=== PATIENT | female | born 1950 | race Caucasian/White ===

== ENCOUNTER 2021-11-25 19:20 | Emergency (ER) | payer MEDICARE, OTHER ==
[2021-11-25] MEDS ORDERED: diphenhydrAMINE 50 MG/ML SDV IVPUSH ONE (20:04)
[2021-11-25] MEDS ORDERED: Lactated Ringers 1,000 ML IV ONE (20:04)
[2021-11-25] MEDS ORDERED: Metoclopramide 10 MG/2 ML SDV IVPUSH ONE (20:04)
--- NOTE | 2021-11-25 20:26 | EDM.PDOC ---
ED [facility] GENERAL MEDICAL PROBLEM - General Chief Complaint: Neurological Problem Stated Complaint: DIZZY SPELLS/VOMITING Time Seen by Provider: 11/25/21 20:23 Source of Information: Reports: Patient History Limitations: Reports: No Limitations - History of Present Illness INITIAL COMMENTS - FREE TEXT/NARRATIVE: Patient is a 71-year-old female with prior stroke presenting with a chief complaint of dizziness and vomiting. Patient states the dizziness started while watching TV approximately 3 hours ago. Subsequently, it has waxed and waned. She is currently asymptomatic. She states the dizziness felt like a room spinning sensation and she felt sick to her stomach. She did vomit several times. Vomiting seemed to improve symptoms. She reports feeling generally weak now. However, there is no focality to her weakness. She denies any headache, blurry vision, abdominal pain. She also had several episodes of diarrhea this morning. Denies any prior history of vertigo or similar symptoms. No interventions performed prior to arrival. 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: Musculoskeletal History: Reports: Other (See Below) Other Musculoskeletal History: restless leg syndrome Neurological History: Reports: Other (See Below) Other Neuro History: CVA Aug 2020 Psychiatric History: Reports: Eating Disorders, Other (See Below) Other Psychiatric History: bulemia history - Infectious Disease History Infectious Disease History: Reports: Shingles - Past Surgical History GI Surgical History: Reports: None Social & Family History - Tobacco Use Tobacco Use Status *Q: Never Tobacco User - Caffeine Use Caffeine Use: Reports: Coffee - Recreational Drug Use Recreational Drug Use: No ED ROS GENERAL - Review of Systems Review Of Systems: See Below Free Text/Narrative/Comment: In addition to that documented in the HPI above, the additional ROS was obtained: Constitutional: Denies fevers or chills Eyes: Denies vision changes ENMT: Denies sore throat CV: Denies chest pain Resp: Denies SOB GI: Per HPI : Denies painful urination MSK: Denies recent trauma Skin: Denies new rashes Neuro: Denies new numbness or tingling or weakness Endocrine: Denies unexpected weight loss Heme: Denies bleeding disorders ED EXAM, DIZZINESS - Physical Exam Exam: See Below Text/Narrative:: I have reviewed the triage vital signs Const: Well nourished, well developed, appears stated age Eyes: Pupils Equal and reactive to light bilaterally, no conjunctival injection HENT: No signs of trauma or swelling, Neck supple without meningismus CV: Regular Rate Rhythm, Warm, well-perfused extremities RESP: Unlabored respiratory effort GI: soft, non-tender, non-distended, no masses MSK: No gross deformities appreciated Skin: Warm, dry. 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 No pronator drift. Lweake-vsdi-[id number] normal. Sensation and motor function of extremities is intact. Psych: Appropriate mood and affect. #1 Interpretation EKG Date: 11/25/21 Time: 20:30 Rhythm: NSR Rate (Beats/Min): 72 [place]: Normal P-Wave: Present QRS: Normal ST-T: Normal QT: Normal EKG Interpretation Comments: Normal EKG Course - Vital Signs Last Recorded V/S: Last Vital Signs Temp 35.9 C L 11/25/21 19:33 Pulse 66 11/25/21 19:33 Resp 15 11/25/21 19:33 BP 152/85 H 11/25/21 19:33 Pulse Ox 96 11/25/21 19:41 - Orders/Labs/Meds Orders: Active Orders 24 hr Category Date Time Status Blood Glucose Check, Bedside [RC] ONETIME Care 11/25/21 20:03 Active Ang Head [CT] Stat Exams 11/25/21 21:11 Taken Ang Neck [CT] Stat Exams 11/25/21 21:12 Taken Head wo Cont [CT] Stat Exams 11/25/21 20:03 Taken Simvastatin [Zocor] Med 11/26/21 22:26 Once 40 mg PO ONETIME ONE Sodium Chloride 0.9% [Normal Saline] 100 ml Med 11/25/21 22:00 Active IV ASDIRECTED Medication Orders Sodium Chloride (Normal Saline) 100 mls @ 60 mls/min IV ASDIRECTED KYLER Last Admin: 11/25/21 21:55 Dose: 60 mls/min Documented by: JUSTIN Simvastatin (Simvastatin 40 Mg Tab) 40 mg PO ONETIME ONE Stop: 11/26/21 22:27 Labs: Laboratory Tests 11/25/21 11/25/21 11/25/21 Range/Units 20:53 20:53 20:53 WBC 10.74 H (3.98-10.04) K/mm3 RBC 4.72 (3.98-5.22) M/mm3 Hgb 14.3 (11.2-15.7) gm/dl Hct 45.0 H (34.1-44.9) % MCV 95.3 H (79.4-94.8) fl MCH 30.3 (25.6-32.2) pg MCHC 31.8 L (32.2-35.5) g/dl RDW Std Deviation 43.3 (36.4-46.3) fL Plt Count 337 (182-369) K/mm3 MPV 9.7 (9.4-12.3) fl Neut % (Auto) 76.4 H (34.0-71.1) % Lymph % (Auto) 13.3 L (19.3-51.7) % [place] % (Auto) 7.4 (4.7-12.5) % Eos % (Auto) 2.2 (0.7-5.8) Baso % (Auto) 0.5 (0.1-1.2) % Neut # (Auto) 8.21 H (1.56-6.13) K/mm3 Lymph # (Auto) 1.43 (1.18-3.74) K/mm3 [place] # (Auto) 0.79 H (0.24-0.36) K/mm3 Eos # (Auto) 0.24 (0.04-0.36) K/mm3 Baso # (Auto) 0.05 (0.01-0.08) K/mm3 PT 10.5 (9.7-12.0) SECONDS INR 0.94 Sodium 143 (136-145) mEq/L Potassium 4.4 (3.5-5.1) mEq/L Chloride 105 (98-107) mEq/L Carbon Dioxide 32 (21-32) mEq/L Anion Gap 10.4 (5-15) BUN 20 H (7-18) mg/dL Creatinine 1.0 (0.55-1.02) mg/dL Est Cr Clr Drug Dosing 38.37 mL/min Estimated GFR (MDRD) 55 (>60) mL/min BUN/Creatinine Ratio 20.0 H (14-18) Glucose 111 H (70-99) mg/dL POC Glucose (70-99) mg/dL Calcium 9.2 (8.5-10.1) mg/dL Total Bilirubin 0.4 (0.2-1.0) mg/dL AST 22 (15-37) U/L ALT 21 (14-59) U/L Alkaline Phosphatase 90 (46-116) U/L Total Protein 8.1 (6.4-8.2) g/dl Albumin 3.8 (3.4-5.0) g/dl Globulin 4.3 gm/dL Albumin/Globulin Ratio 0.9 L (1-2) Ethyl Alcohol 0.00 (0.00) gm% SARS-CoV-2 RNA (CHALINO) (NEGATIVE) 11/25/21 11/25/21 Range/Units 20:55 21:44 WBC (3.98-10.04) K/mm3 RBC (3.98-5.22) M/mm3 Hgb (11.2-15.7) gm/dl Hct (34.1-44.9) % MCV (79.4-94.8) fl MCH (25.6-32.2) pg MCHC (32.2-35.5) g/dl RDW Std Deviation (36.4-46.3) fL Plt Count (182-369) K/mm3 MPV (9.4-12.3) fl Neut % (Auto) (34.0-71.1) % Lymph % (Auto) (19.3-51.7) % [place] % (Auto) (4.7-12.5) % Eos % (Auto) (0.7-5.8) Baso % (Auto) (0.1-1.2) % Neut # (Auto) (1.56-6.13) K/mm3 Lymph # (Auto) (1.18-3.74) K/mm3 [place] # (Auto) (0.24-0.36) K/mm3 Eos # (Auto) (0.04-0.36) K/mm3 Baso # (Auto) (0.01-0.08) K/mm3 PT (9.7-12.0) SECONDS INR Sodium (136-145) mEq/L Potassium (3.5-5.1) mEq/L Chloride (98-107) mEq/L Carbon Dioxide (21-32) mEq/L Anion Gap (5-15) BUN (7-18) mg/dL Creatinine (0.55-1.02) mg/dL Est Cr Clr Drug Dosing mL/min Estimated GFR (MDRD) (>60) mL/min BUN/Creatinine Ratio (14-18) Glucose (70-99) mg/dL POC Glucose 96 (70-99) mg/dL Calcium (8.5-10.1) mg/dL Total Bilirubin (0.2-1.0) mg/dL AST (15-37) U/L ALT (14-59) U/L Alkaline Phosphatase (46-116) U/L Total Protein (6.4-8.2) g/dl Albumin (3.4-5.0) g/dl Globulin gm/dL Albumin/Globulin Ratio (1-2) Ethyl Alcohol (0.00) gm% SARS-CoV-2 RNA (CHALINO) Negative (NEGATIVE) Meds: Medications Generic Name Dose Route Start Last Admin Trade Name Freq PRN Reason Stop Dose Admin Sodium Chloride 100 mls @ 60 mls/min 11/25/21 22:00 11/25/21 21:55 Normal Saline IV 60 mls/min ASDIRECTED KYLER Administration Simvastatin 40 mg 11/26/21 22:26 Simvastatin 40 Mg Tab PO 11/26/21 22:27 ONETIME ONE Discontinued Medications Generic Name Dose Route Start Last Admin Trade Name Freq PRN Reason Stop Dose Admin Aspirin 325 mg 11/25/21 22:26 11/25/21 22:41 Aspirin 325 Mg Tab.Ec PO 11/25/21 22:27 325 mg ONETIME ONE Administration Diphenhydramine HCl 25 mg 11/25/21 20:04 11/25/21 20:51 Diphenhydramine 50 Mg/Ml Sdv IVPUSH 11/25/21 20:05 25 mg ONETIME ONE Administration Lactated Ringer's 1,000 mls @ 1,000 mls/hr 11/25/21 20:04 11/25/21 20:49 Ringers, Lactated IV 11/25/21 21:03 1,000 mls/hr .BOLUS ONE Administration Iopamidol 100 ml 11/25/21 21:54 11/25/21 21:54 Iopamidol 755 Mg/Ml 100 Ml Bottle IVPUSH 11/25/21 21:55 100 ml ONETIME ONE Administration Metoclopramide HCl 10 mg 11/25/21 20:04 11/25/21 20:49 Metoclopramide 10 Mg/2 Ml Sdv IVPUSH 11/25/21 20:05 10 mg ONETIME ONE Administration Prednisone 40 mg 11/25/21 23:20 Prednisone 10 Mg Tab PO 11/25/21 23:21 STAT STA Simvastatin 40 mg 11/25/21 22:50 Simvastatin 40 Mg Tab PO 11/25/21 22:51 STAT STA Sodium Chloride 10 ml 11/25/21 21:54 11/25/21 21:55 Sodium Chloride 0.9% 10 Ml Sdv FLUSH 11/25/21 21:55 10 ml ONETIME ONE Administration Departure - Departure Time of Disposition: 23:21 Disposition: Home, Self-Care 01 Clinical Impression: TIA (transient ischemic attack), Dizziness - Discharge Information Prescriptions: Clopidogrel Bisulfate [Plavix] 75 mg PO DAILY #10 tablet predniSONE See Taper PO WITHBREAKFAST #15 tab Instructions: Transient Ischemic Attack, [id number], Dizziness, [id number] Referrals: PCP,Not In Area [Primary Care Provider] - Forms: ED Department Discharge Sepsis Event Note (ED) - Evaluation Sepsis Screening Result: No Definite Risk - Focused Exam Vital Signs: Vital Signs Temp Pulse Resp BP Pulse Ox 11/25/21 19:41 96 11/25/21 19:33 35.9 C L 66 15 152/85 H - My Orders Last 24 Hours: My Active Orders 11/25/21 20:03 Blood Glucose Check, Bedside [RC] ONETIME Head wo Cont [CT] Stat 11/25/21 21:11 Ang Head [CT] Stat 11/25/21 21:12 Ang Neck [CT] Stat 11/25/21 22:00 Sodium Chloride 0.9% [Normal Saline] 100 ml IV ASDIRECTED 11/26/21 22:26 Simvastatin [Zocor] 40 mg PO ONETIME ONE - Assessment/Plan Last 24 Hours: My Active Orders 11/25/21 20:03 Blood Glucose Check, Bedside [RC] ONETIME Head wo Cont [CT] Stat 11/25/21 21:11 Ang Head [CT] Stat 11/25/21 21:12 Ang Neck [CT] Stat 11/25/21 22:00 Sodium Chloride 0.9% [Normal Saline] 100 ml IV ASDIRECTED 11/26/21 22:26 Simvastatin [Zocor] 40 mg PO ONETIME ONE Assessment:: Patient 71-year-old female presenting to the emergency room with dizziness. Benign neurologic exam. NIH stroke scale 0. Remained asymptomatic while in the emergency room. Broad differential diagnosis considered for this patient include cardiac arrhythmia, acute stroke/TIA, electrolyte aberrancy, severe anemia. Laboratory studies and CAT scan reviewed. No significant abnormalities on laboratory study. There is evidence of possible acute lacunar infarct due to a hypodensity within the left jennifer. There is no evidence of large vessel o cclusion on CT angiogram. At this point, patient was given aspirin and atorvastatin. I did discuss this case with Dr. Dalton of [facility] who recommended rapid access outpatient follow-up in their clinic. He did not recommend admission. He did recommend prednisone taper as well as addition of Plavix for several weeks. These were prescribed for the patient. All questions were addressed and answered. Patient discharged with outpatient follow-up.
[2021-11-25] MEDS ORDERED: Iopamidol 755 Mg/ML 100 ML Bottle IVPUSH ONE (21:54)
[2021-11-25] MEDS ORDERED: Sodium Chloride 0.9% 10 ML SDV FLUSH ONE (21:54)
[2021-11-25] MEDS ORDERED: Sodium Chloride 0.9% 100 ML IV SCH (22:00)
[2021-11-25] MEDS ORDERED: Aspirin 325 MG Tab.EC PO ONE (22:26)
[2021-11-25] MEDS ORDERED: Simvastatin 40 MG Tab PO STA (22:50)
[2021-11-25] MEDS ORDERED: predniSONE 10 MG Tab PO STA (23:20)
--- NOTE | 2021-11-26 08:06 | CT ---
Head CT Technique: Multiple axial sections through the brain were obtained. Intravenous contrast not utilized. Reconstructed coronal and sagittal images were obtained. Comparison: No prior intracranial imaging is available. Findings: Ventricles along with basal cisterns and sulci over the convexities are mildly prominent. Scattered areas of diminished density are noted within the periventricular white matter compatible with small vessel ischemic demyelination change. Low density is noted within the left side of the jennifer compatible with a small infarct measuring 7 mm. No other abnormal parenchymal densities are seen. No evidence of intracranial hemorrhage is seen. No midline shift or mass-effect is seen. Atherosclerotic calcification is seen within the carotid siphon. Atherosclerotic calcification is noted within the vertebral vessels. Bone window settings were reviewed. No acute calvarial abnormality is seen. Visualized mastoid sinuses and visualized paranasal sinuses showed nothing acute. Impression: 1. Senescent change as noted above. 2. Low density noted within the left jennifer most likely representing old lacunar infarct. MRI would be needed to confirm this impression if clinically needed. Diagnostic code #2 I agree with preliminary report from [facility], finalized on 11/25/21, 10:04 PM JEWELRY ESTIMATOR, code 1
--- NOTE | 2021-11-26 08:08 | CT ---
CT angiogram of neck Technique: Multiple axial sections were obtained through the neck. Intravenous contrast was utilized. Study was performed as a CT angiogram of neck. Comparison: No prior CT neck study is available. Findings: Both common carotid arteries are patent. Mild plaque is seen within the carotid bulbs on both sides. Internal carotid arteries are patent. Slight atherosclerotic change is seen within the carotid siphon on both sides. External carotid arteries are patent. Distal right vertebral artery is severely stenotic. Other portions of the vertebral arteries are within normal limits. Left vertebral artery is dominant over the right vertebral artery. Bone window setting shows diffuse disc space narrowing within the cervical spine as well as slightly abnormal cervical curvature compatible with degenerative change. Impression: 1. Atherosclerotic plaque as described above. 2. Small area of severe stenosis within the distal right vertebral artery. 3. No other area of abnormal stenosis is seen within the neck. 4. Degenerative change within the neck. 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
--- NOTE | 2021-11-26 08:10 | CT ---
CT angiogram of the brain Technique: Multiple axial sections through the brain were obtained. Intravenous contrast was utilized. Study was obtained in the arterial phase with reconstructed MIP images obtained. Comparison: No prior angiogram study of the brain is available. Findings: Distal right vertebral artery is severely stenotic prior to its junction to the left vertebral artery. Left vertebral artery shows flow into the basilar artery. Distal basilar artery shows a very short area of moderate stenosis. Middle cerebral arteries and anterior cerebral arteries are patent. Distal internal carotid arteries are patent. Impression: 1. Severe stenosis within the distal right vertebral artery as well as a short but severe area of stenosis within the distal basilar artery. 2. Other portions of the distal internal carotid arteries, middle cerebral arteries, anterior cerebral arteries and posterior cerebral arteries appear unremarkable. Diagnostic code #3 I agree with preliminary report from [facility], finalized on 11/25/21, 11:17 PM CATTLE DIPPER, code 1
[2021-11-26] MEDS ORDERED: Simvastatin 40 MG Tab PO ONE (22:26)
== END 2021-11-25 23:55 | disposition home or self-care (01) ==
LOC: JD.ED 19:20
DX: G45.9 Transient cerebral ischemic attack, unspecified (principal); R42 Dizziness and giddiness; E78.00 Pure hypercholesterolemia, unspecified; I10 Essential (primary) hypertension; Z79.02 Long term (current) use of antithrombotics/antiplatelets; Z20.822 Contact with and (suspected) exposure to COVID-19
CPT/HCPCS: 36415; 70450; 70496; 70498; 80053; 80307; 82947; 85025; 85610; 93005; 96374; 96375; 99285; A9270; J1200; J2765; J7120; Q9967; U0002